=== PATIENT | male | born 2000 | race Caucasian/White ===

== ENCOUNTER 2019-01-25 17:12 | Emergency (ER) | payer SELFPAY ==
[2019-01-25 18:40] VITALS: BP 135/68; PULSE 77; RESP 20; TEMP 36.9; O2SAT 97
[2019-01-25] MEDS: HYDROcodone 5/Acetaminophen 325 TAB PO (19:28)
--- NOTE | 2019-01-25 20:21 | W.ED.GENAD ---
Discharge Plan Disposition Patient Disposition: HOME Condition: Improving Discharge Details Chief Complaint: EyeProblem Clinical Impression: Corneal abrasion, left Primary Care Provider: Cesario Dorsey ED Provider: Vinh Kennedy Home Meds and New Rx's Prescriptions: No Action bupropion HCl 150 MG tablet extended release 24 hr 150 mg PO DAILY Qty: 30 RF: 2 Discharge Instructions Instructions: Corneal Abrasion (ED) Additional Instructions: Please take [id number] ibuprofen 600 mg along with 650 mg - 1000 mg of acetaminophen every 6 hours for continued pain. Use the provided eye ointment half inch to the left lower eyelid 4 times daily for the next 5 days. You should follow-up with [facility] in the next couple days for reassessment Stand Alone Forms: Work Release Referrals: [facility] [Outside] - 3 days (Call the office for arrangement of follow-up with appointment) Discharge Data Discharge Date/Time-TO BE ENTERED AT DEPARTURE: 01/25/19 20:43 Medical Decision Making Patient states around 3 PM this afternoon he was at work and got dust into his eye. Since then he has had significant irritation to the left eye with blurry vision and inability to open his left eye completely. Patient denies any other injury or trauma. Physical exam shows a tearful diffusely reddened left sclera. Cornea was visualized with both slit-lamp and Calvert lamp and floor seen dye. There was dye uptake in approximately the lateral half of the cornea that is diffuse and hazy without a specific linear scratch. With Calvert lamp it was more easily to visualize the scratching of the cornea. EOMs are intact and exam is otherwise unremarkable. Concern for a corneal abrasion. Patient started on erythromycin otherwise no foreign body was easily identified on exam. Patient was encouraged to follow-up with [facility] for reassessment. Tetanus was reviewed and is up-to-date. After discussion of diagnosis and plan of care patient has no further needs, questions, or concerns and states clear understanding to return to the emergency department for any worsening symptoms. HPI General Mode of arrival: ambulatory. Date/Time Provider Initiated Documentation: 01/25/19 18:06. Limitations to Documentation: no limitations. Information obtained by: patient and RN notes reviewed. History of Present Illness 18 year old M presents to the emergency department with the chief complaint of left eye pain, described as moderate, with intensity rated at 8. Quality is described as sharp, and is localized to the eyes and left. Patient started experiencing this hour(s) (3) and it has been constant. No relieving factors improve symptom(s), Patient notes no other symptoms.. Patient did receive the following treatments prior to arrival, none Related Data Home Medications Medication Instructions Recorded Confirmed bupropion HCl 150 mg PO DAILY #30 tab-cap 10/13/16 01/25/19 Allergies Allergy/AdvReac Type Severity Reaction Status Date / Time No Known Allergies Allergy Unverified 01/25/19 18:43 General Stated Complaint: EyeProblem [place]: 3 Review of Systems Constitutional Denies body ache(s), Denies chills and Denies fever(s) Eyes Reports as per HPI, Reports blurry vision and Denies requires corrective lenses Cardiovascular Denies dyspnea Respiratory Denies dyspnea Integumentary/Breasts Denies rash Neurologic Denies sensory deficit PFSH Social History Smoking/Tobacco Use Status: Never Alcohol Intake: never Substance use type: does not use Do you feel safe at home: Yes Do you feel safe in your relationship?: Yes Exam Const General: cooperative, no acute distress and not ill appearing Orientation: alert, awake and oriented x3 HENMT Head: normal to inspection and atraumatic Mouth: moist mucous membranes Eyes General: appearance normal, both eyes and all related structures Visual Rodriguez: normal visual rodriguez by confrontation Alignment and Position: alignment normal Periorbital: periorbital findings normal Eyelids: eyelids normal Conjunctivae: conjunctival abnormality left conjunctival injection diffuse Sclera: scleral abnormality left scleral injection diffuse Cornea: corneas abnormal on the left fluorescein used and abrasion diffuse and at the following clock position (2); without opacification, no contact lens present, without diffuse punctate uptake, without dendrites present and without edema Pupils: PERRL, normal by confrontation and accommodation normal EOM: EOM intact bilaterally and No nystagmus Resp Effort & Inspection: normal respiratory effort, able to speak in complete sentences and no respiratory distress Skin General skin exam: no rashes or lesions noted Neuro Cranial Nerves: no nystagmus Course Vital Signs Temperature 36.9 C 01/25/19 18:40 Pulse 77 01/25/19 18:40 Respiratory Rate 20 01/25/19 18:40 Blood Pressure 135/68 01/25/19 18:40 Pulse Oximetry 97 01/25/19 18:40 Temperature 36.9 C 01/25/19 18:40 Temperature Source Temporal Artery Scan 01/25/19 18:40 Pulse 77 01/25/19 18:40 Respiratory Rate 20 01/25/19 18:40 Respiratory Effort Non-Labored 01/25/19 18:40 Blood Pressure 135/68 01/25/19 18:40 Pulse Oximetry 97 01/25/19 18:40 Oxygen Delivery Method Room Air 01/25/19 18:40 Oxygen Flow Rate 0 01/25/19 18:40 Pain Level 8 01/25/19 19:28
== END 2019-01-25 20:43 | disposition home or self-care (01) ==
PROVIDERS: Emergency Provider Nurse Practitioner Family; PCP Family Medicine
DX: S05.02XA Injury of conjunctiva and corneal abrasion without foreign body, left eye, initial encounter (principal); X58.XXXA Exposure to other specified factors, initial encounter
CPT/HCPCS: 99283